=== PATIENT | male | born 1940 | race Caucasian/White ===

== ENCOUNTER → 2017-02-10 | Day surgery (SDC) | payer MEDICARE, OTHER ==
[~2017-02-10] MED LIST: ASPIRIN CHEWABL81 MG PO; CARAFATE1 GM PO; DILTIAZEM 24HR300 MG PO; FEOSOL325 MG PO; HCTZ25 MG PO; PLAVIX75 MG PO; PREVACID30 M1 PO; RANEXA1000 MG PO
== END | disposition home or self-care (01) ==
LOC: FAS 07:52
DX: K29.80 Duodenitis without bleeding (principal); K29.50 Unspecified chronic gastritis without bleeding; K21.9 Gastro-esophageal reflux disease without esophagitis; I10 Essential (primary) hypertension; I25.10 Atherosclerotic heart disease of native coronary artery without angina pectoris; I48.91 Unspecified atrial fibrillation; E78.00 Pure hypercholesterolemia, unspecified; Z79.82 Long term (current) use of aspirin; Z79.02 Long term (current) use of antithrombotics/antiplatelets; Z79.899 Other long term (current) drug therapy; Z98.890 Other specified postprocedural states; Z87.891 Personal history of nicotine dependence; Z85.46 Personal history of malignant neoplasm of prostate; Z90.49 Acquired absence of other specified parts of digestive tract
CPT/HCPCS: 88305; J2704

== ENCOUNTER → 2021-12-04 | Day surgery (SDC) | payer MEDICARE, OTHER ==
[~2021-12-04] VITALS: Ht 170.2 cm; Wt 74.4 kg
[~2021-12-04] MED LIST changes: +ALLOPURINOL 10100 MG PO; +ELIQUIS5 MG PO; +WELCHOL625 MG PO
[2021-12-04 08:48] LABS: HCT 28.1 % (42.0-52.0); HGB 9.5 g/dl (13.2-18.0); MCHC 33.8 g/dL (32.0-36.0); MCV 94.6 fL (78.0-100.0); MPV 9.5 fL (6.0-9.5); RBC 2.97 M/uL (4.70-6.00); RDW 14.5 % (11.5-14.0); WBC 8.3 K/uL (4.0-10.5)
[2021-12-04 09:39] LABS: ALBUMIN 3.8 g/dL (3.4-5.0); BILIRUBIN - TOTAL 0.7 mg/dL (0.2-1.0); BUN/CREAT RATIO (CALC) 16.2 RATIO; CREATININE 1.48 mg/dL (0.67-1.17); POTASSIUM 3.6 mmol/L (3.5-5.1); TOTAL PROTEIN 6.8 g/dL (6.4-8.2)
== END | disposition home or self-care (01) ==
LOC: FAS 07:45
PROVIDERS: Surgery
DX: K21.9 Gastro-esophageal reflux disease without esophagitis (principal); K29.70 Gastritis, unspecified, without bleeding; K31.9 Disease of stomach and duodenum, unspecified; K92.1 Melena; D50.0 Iron deficiency anemia secondary to blood loss (chronic); I25.10 Atherosclerotic heart disease of native coronary artery without angina pectoris; I10 Essential (primary) hypertension; E78.00 Pure hypercholesterolemia, unspecified; Z95.5 Presence of coronary angioplasty implant and graft; Z79.01 Long term (current) use of anticoagulants; Z79.82 Long term (current) use of aspirin; Z79.899 Other long term (current) drug therapy
CPT/HCPCS: 36415; 80053; 86850; 86900; 86901; J2250; J2704; J3010; J7120

== ENCOUNTER → 2022-03-03 | Day surgery (SDC) | payer MEDICARE, OTHER ==
[~2022-03-03] VITALS: Ht 170.2 cm; Wt 74.8 kg
[~2022-03-03] MED LIST changes: +ONE DAILY FOR1 EAC1 PO
[2022-03-03 06:41] LABS: HCT 42.3 % (42.0-52.0); HGB 14.2 g/dl (13.2-18.0); MCH 29.6 pg (25.0-31.0); MCHC 33.6 g/dL (32.0-36.0); MCV 88.1 fL (78.0-100.0); MPV 9.3 fL (6.0-9.5); RBC 4.8 M/uL (4.70-6.00); RDW 15.1 % (11.5-14.0)
[2022-03-03 07:07] LABS: ALBUMIN 3.7 g/dL (3.4-5.0); BILIRUBIN - TOTAL 0.5 mg/dL (0.2-1.0); BUN/CREAT RATIO (CALC) 13.9 RATIO; CREATININE 1.08 mg/dL (0.67-1.17); GLOBULIN (CALCULATION) 3.4 g/dL; POTASSIUM 4.4 mmol/L (3.5-5.1); TOTAL PROTEIN 7.1 g/dL (6.4-8.2)
== END | disposition home or self-care (01) ==
LOC: FAS 05:59
PROVIDERS: Orthopaedic Surgery
DX: M75.121 Complete rotator cuff tear or rupture of right shoulder, not specified as traumatic (principal); M75.51 Bursitis of right shoulder; M19.011 Primary osteoarthritis, right shoulder; I10 Essential (primary) hypertension; E78.5 Hyperlipidemia, unspecified; I48.91 Unspecified atrial fibrillation; K21.9 Gastro-esophageal reflux disease without esophagitis; I25.10 Atherosclerotic heart disease of native coronary artery without angina pectoris; Z95.5 Presence of coronary angioplasty implant and graft; Z79.899 Other long term (current) drug therapy
CPT/HCPCS: 36415; 71045; 80053; 93005; C1713; J0171; J0690; J1100; J2250; J2370; J2405; J2704; J2795; J3010; J7120